=== PATIENT | male | born 1975 | race Caucasian/White ===

== ENCOUNTER 2021-09-12 13:04 | Emergency (ER) | payer OTHER ==
[~2021-09-12] VITALS: Ht 175.3 cm; Wt 128.2 kg
[2021-09-12] MEDS ORDERED: IBUP-1022 PO (13:16)
[2021-09-12] MEDS ORDERED: FENO48TA8 PO (13:16)
[2021-09-12] MEDS ORDERED: DESV50TA PO (13:16)
[2021-09-12] MEDS ORDERED: REXU1TAB4 PO (13:16)
[2021-09-12] MEDS ORDERED: MUCI120T PO (13:16)
[2021-09-12] MEDS ORDERED: LISI2.5T9 PO (13:16)
[2021-09-12] MEDS ORDERED: AMOX875T2 PO (14:35)
[2021-09-12] MEDS ORDERED: LIDOCAINE VISCOUS 2% SOLN 15ML UDC SSP ONE (14:35)
[2021-09-12] MEDS ORDERED: LIDO2SOL17 PO (14:36)
[2021-09-12 15:30] VITALS: BP 133/85
== END 2021-09-12 15:32 | disposition home or self-care (01) ==
LOC: M ED 13:04
DX: K04.7 Periapical abscess without sinus (principal); K02.9 Dental caries, unspecified; K13.79 Other lesions of oral mucosa; B34.9 Viral infection, unspecified; R09.81 Nasal congestion; R05.9 Cough, unspecified; F32.9 Major depressive disorder, single episode, unspecified; F41.9 Anxiety disorder, unspecified; Z87.891 Personal history of nicotine dependence; Z88.2 Allergy status to sulfonamides; Z79.899 Other long term (current) drug therapy